=== PATIENT | male | born 1980 | race Caucasian/White ===

== ENCOUNTER 2020-09-11 08:38 | Emergency (ER) | payer MEDICAID ==
[~2020-09-11] VITALS: Ht 185.4 cm; Wt 86.2 kg
[2020-09-11 08:47] VITALS: BP_SYST 142
[2020-09-11] MEDS ORDERED: BACITRACIN 1 GM OINT TP ONE (09:45)
[2020-09-11] MEDS ORDERED: IBUP-1971 PO (09:49)
[2020-09-11 10:00] VITALS: BP_SYST 142
== END 2020-09-11 10:00 | disposition home or self-care (01) ==
LOC: SED 08:38
DX: S60.414A Abrasion of right ring finger, initial encounter (principal); X58.XXXA Exposure to other specified factors, initial encounter; Y93.89 Activity, other specified; Y92.89 Other specified places as the place of occurrence of the external cause; Y99.8 Other external cause status
CPT/HCPCS: 99282

== ENCOUNTER 2020-11-11 12:10 | Emergency (ER) | payer MEDICAID ==
[~2020-11-11] VITALS: Ht 185.4 cm; Wt 86.2 kg
[~2020-11-11 12:10] MED LIST: IBUP-1971 PO
[2020-11-11 12:40] VITALS: BP_SYST 150
== END 2020-11-11 15:00 | disposition left against medical advice (07) ==
LOC: SED 12:10
DX: L02.212 Cutaneous abscess of back [any part, except buttock and flank] (principal); Z53.21 Procedure and treatment not carried out due to patient leaving prior to being seen by health care provider

== ENCOUNTER 2020-11-18 08:45 | Emergency (ER) | payer MEDICAID ==
[~2020-11-18] VITALS: Ht 185.4 cm; Wt 81.6 kg
--- NOTE | 2020-11-18 08:50 | NUR ---
Patient to ER bed 5 to gown for evaluation. Side rails up. Report given to Cruz CHAUDHARI.
[2020-11-18 08:53] VITALS: BP_SYST 160
--- NOTE | 2020-11-18 08:55 | NUR ---
Pt came into ER with complaint of a rash X7days. Pt denies any pain and presents with scab on back of the neck, left forearm, and left inner thigh. Pt [id number] speaking full sentences.Resting in gurney no distress noted.
--- NOTE | 2020-11-18 09:00 | NUR ---
ER at bedside examining patient.
--- NOTE | 2020-11-18 09:14 | NUR ---
Lab at bedside.
[2020-11-18] MEDS ORDERED: PENICILLIN G BENZATHINE 1.2 MMU/2 ML SYR IM ONE (09:15)
[2020-11-18 09:26] LABS: BASOPHILS % (AUTO) 0.4 % (0.0-2.0); EOSINOPHILS # (AUTO) 0.1 K/uL (0.0-0.4); EOSINOPHILS % (AUTO) 1.9 % (0.0-4.0); HEMATOCRIT 42.9 % (36-54); HEMOGLOBIN 14.4 g/dL (14.0-18.0); LYMPHOCYTES # (AUTO) 2.2 K/uL (1.0-5.5); LYMPHOCYTES % (AUTO) 32.2 % (20.5-51.5); MEAN CORPUSCULAR HEMOGLOBIN 29 pg (27-31); MEAN CORPUSCULAR HGB CONC 34 % (32-36); MEAN CORPUSCULAR VOLUME 87 fL (79.0-98.0); MONOCYTES # (AUTO) 0.8 K/uL (0.0-1.0); NEUTROPHILS # (AUTO) 3.7 K/uL (1.8-7.7); NEUTROPHILS % (AUTO) 54.5 % (40.0-70.0); PLATELET COUNT (AUTO) 215 K/uL (130-430); RED BLOOD CELL COUNT(AUTO) 4.96 MIL/uL (4.2-6.2); RED CELL DISTRIBUTION WIDTH 14.1 % (9.0-15.0); WHITE BLOOD COUNT (AUTO) 6.9 K/uL (4.8-10.8)
[2020-11-18 09:37] LABS: ANION GAP 11 (5-15); CALCIUM 8.8 mg/dL (8.4-11.0); CHLORIDE 104 mmol/L (98-107); CREATININE 1.18 mg/dL (0.55-1.30); GLUCOSE 118 mg/dL (70-99); POTASSIUM 3.7 mmol/L (3.5-5.1); SODIUM SERUM 141 mmol/L (136-145); UREA NITROGEN, BLOOD 14 mg/dL (8-21)
[2020-11-18 09:38] LABS: GFR AFRICAN AMERICAN 87 mL/min (>90)
[2020-11-18 09:41] LABS: ALANINE AMINOTRANSFERASE 30 U/L (12-78); ASPARTATE AMINOTRANSFERASE 19 U/L (10-37); C-REACTIVE PROTEIN QUANT < 0.2 mg/dL (0-0.5); TOTAL BILIRUBIN 0.7 mg/dL (0.0-1.0)
[2020-11-18] MEDS ORDERED: BETA45CR3 TP (10:18)
[2020-11-18 10:26] VITALS: BP_SYST 160
--- NOTE | 2020-11-18 10:27 | NUR ---
Patient given written and verbal discharge instructions and verbalizes understanding. ER MD discussed with patient the results and treatment provided. Patient in stable condition. ID arm band removed. Rx of BETMETHASONE given. Patient educated on pain management and to follow up with PMD. Pain Scale 0/10. Opportunity for questions provided and answered. Medication side effect fact sheet provided.
== END 2020-11-18 10:27 | disposition home or self-care (01) ==
LOC: SED 08:45
DX: L25.9 Unspecified contact dermatitis, unspecified cause (principal); Z79.899 Other long term (current) drug therapy
CPT/HCPCS: 36415; 80053; 83605; 85025; 86140; 86592; 96372; 99283; J0561